=== PATIENT | female | born 1990 | race African-American/Black ===

== ENCOUNTER → 2020-01-05 | Emergency (ER) | payer MEDICAID, OTHER ==
[~2020-01-05] VITALS: Ht 167.6 cm; Wt 116.1 kg
[2020-01-05 02:34] VITALS: BP 122/82
== END | disposition home or self-care (01) ==
LOC: ER 01:55
DX: S02.5XXA Fracture of tooth (traumatic), initial encounter for closed fracture (principal); K04.7 Periapical abscess without sinus; X58.XXXA Exposure to other specified factors, initial encounter; Y93.89 Activity, other specified; Y92.89 Other specified places as the place of occurrence of the external cause; Y99.8 Other external cause status